=== PATIENT | female | born 2000 | race Caucasian/White ===

== ENCOUNTER 2023-01-28 04:27 | Emergency (ER) | payer BC | END 2023-01-28 04:51 | disposition home or self-care (01) | LOC: CSHERS 04:27 | DX: S31.41XA Laceration without foreign body of vagina and vulva, initial encounter (principal); X58.XXXA Exposure to other specified factors, initial encounter | CPT/HCPCS: 99283 ==

== ENCOUNTER 2023-11-07 08:27 | Outpatient (CLI) | payer BC ==
[2023-11-07 12:04] LABS: Hematocrit 38.2 % (34.9-44.5)
[2023-11-07 12:55] LABS: BHCG - Serum Negative (NEGATIVE); Pregs Control Background? CLEAR/WHITE (CLR/WHITE); Pregs Control Bar Appear? YES (CONTROL BAR)
== END 2023-11-07 08:28 | disposition home or self-care (01) ==
LOC: CSHLAB 08:27
PROVIDERS: ATTEND Otolaryngology
DX: Z01.812 Encounter for preprocedural laboratory examination (principal); J32.0 Chronic maxillary sinusitis; J34.3 Hypertrophy of nasal turbinates; J34.2 Deviated nasal septum; J32.2 Chronic ethmoidal sinusitis; H93.293 Other abnormal auditory perceptions, bilateral
CPT/HCPCS: 84703; 85014